=== PATIENT | female | born 1995 | race Caucasian/White ===

== ENCOUNTER 2021-09-20 15:43 | Emergency (ER) | payer OTHER ==
[~2021-09-20] VITALS: Ht 180.3 cm; Wt 125.6 kg
[2021-09-20 15:48] VITALS: BP 160/85
--- NOTE | 2021-09-20 15:53 | NUR ---
26/F PRESENTS TO ED WITH C/O SORE THROAT AND INTERMITTENT FEVERS SINCE TUESDAY, DENIES COUGH, SOB. REPORTS TAKING DAYQUIL WITH NO RELIEF, NO RECENT SICK CONTACTS.
--- NOTE | 2021-09-20 16:10 | NUR ---
SIENNA AND STREP SWABS COLLECTED AND WALKED TO LAB
--- NOTE | 2021-09-20 16:59 | NUR ---
Patient discharged with v/s stable. Written and verbal after care instructions ABOUT SORE THROAT given and explained. Patient verbalized understanding. Ambulatory with steady gait. All questions addressed prior to discharge. Advised to follow up with PMD.
== END 2021-09-20 16:59 | disposition home or self-care (01) ==
LOC: MED 15:43
DX: J02.9 Acute pharyngitis, unspecified (principal); Z20.822 Contact with and (suspected) exposure to COVID-19; J45.909 Unspecified asthma, uncomplicated
CPT/HCPCS: 87081; 99283